=== PATIENT | female | born 1955 | race Caucasian/White ===

== ENCOUNTER 2019-02-05 12:14 | Day surgery (SDC) | payer BC ==
[2019-02-02 16:06] VITALS: Ht 165.1 cm; Wt 70.9 kg
[2019-02-05] VITALS (13 sets, daily range): BP systolic 121–166; BP diastolic 59–92; PULSE 55–86; RESP 14–25
[~2019-02-05] VITALS: Ht 165.1 cm; Wt 70.9 kg
[~2019-02-05 12:14] MED LIST: CEFAZOLIN 2 GM/50 ML (PMX) 50 ML IVPB SCH
[2019-02-05] MEDS ORDERED: LACTATED RINGER'S 1,000 ML IV SCH (13:30)
[2019-02-05] MEDS ORDERED: CLINDAMYCIN 600 MG/D5W (PMX) 50 ML IVPB SCH (14:00)
[2019-02-05] MEDS ORDERED: NEOMYC/POLYMYX/BACIT 30 GM OINT ONE (14:13)
[2019-02-05] MEDS ORDERED: LIDOCAINE 1% (MPF) 30 ML INJ ONE (14:13)
--- NOTE | 2019-02-05 14:34 | PREAC ---
Date/Time of Note Date/Time of Note DATE: 02/05/19 TIME: 14:34 Anesthesia Eval and Record Evaluation Time Pre-Procedure Interview DATE: 02/05/19 TIME: 14:34 Age 63 Sex female NPO: 8 hrs Preoperative diagnosis wrist mass Planned procedure excision Past Medical History Past Medical History: None Surgery & Anesthesia Issues No known issue Meds Anticoagulation: No Beta Rose within 24 hr: No Reason Beta Rose not given: Pt. not on B-Rose No Active Prescriptions or Reported Meds Current Medications Cefazolin Sodium/ Dextrose 50 ml @ 100 mls/hr PRE-OP IVPB ; Start 02/05/19 at 07:00; Stop 02/05/19 at 19:00 Lactated Ringer's 1,000 ml @ 25 mls/hr Q24H IV ; Start 02/05/19 at 13:30 Clindamycin HCl/ Dextrose 50 ml @ 50 mls/hr ONCE IVPB ; Start 02/05/19 at 14:00; Stop 02/05/19 at 14:59 Meds reviewed: Yes Allergies Coded Allergies: Penicillins (Verified Allergy, Intermediate, 02/05/19) Allergies Reviewed: Yes Labs/Studies Labs Reviewed: Reviewed by anesthesiologist test: N/A Pre-procedure Exam Last vitals Vital Signs Date Temp Pulse Resp B/P (MAP) Pulse Ox O2 O2 Flow FiO2 Time Delivery Rate 02/05/19 97.3 56 16 121/59 100 Room Air 12:59 (79) Airway: Adequate mouth opening, Adequate thyromental dist Mallampati: Mallampati II Teeth: Normal Lung: Normal Heart: Normal ASA Physical Status ASA physical status: 1 Emergency: None Pre-operative Attestations Prior to commencing anesthesia and surgery, the patient was re-evaluated, there was verification of: *The patient's identity *The results of appropriate recent lab work and preoperative vital signs *The above evaluation not changing prior to induction *Anesthetic plan, risk benefits, alternative and complications discussed with patient/family; questions answered; patient/family understands, accepts and wishes to proceed. LACHO LAURA DO Feb 05, 2019 14:34
[2019-02-05] MEDS ORDERED: MIDAZOLAM 1 MG/ML 2 ML INJ ONE ×2 (14:36→15:58)
[2019-02-05] MEDS ORDERED: PROPOFOL 20 ML ONE (14:36)
[2019-02-05] MEDS ORDERED: ETOMIDATE 20 MG INJ ONE (14:36)
[2019-02-05] MEDS ORDERED: FENTAnyl 50 MCG/ML VIAL ONE (14:36)
[2019-02-05] MEDS ORDERED: CLINDAMYCIN 600 MG/D5W (PMX) 50 ML IVPB ONE (14:47)
[2019-02-05] MEDS ORDERED: CEFAZOLIN 1 GM INJ ONE (14:47)
[2019-02-05] MEDS ORDERED: ONDANSETRON 4 MG INJ ONE ×2 (14:49→15:44)
--- NOTE | 2019-02-05 15:29 | OPR ---
Date/Time of Note Date/Time of Note DATE: 02/05/19 TIME: 15:20 Operative Report Preoperative Diagnosis Right dorsal wrist mass Postoperative Diagnosis Right dorsal wrist mass Operation/Procedure Performed 1. Right wrist mass excision, deep, 2. Right wrist capsulectomy Surgeon see signature line Slate Mixer None Anesthesia Type: general Anesthesiologist: LACHO LAURA DO Tourniquet Time: 15 minutes Estimated Blood Loss: minimal Transfusion none Specimen Wrist mass Grafts/Implants none Tubes/Drains None Complications none Pt Condition Post Procedure: stable Disposition: PACU Indications Patient is a 63 year old with a right dorsal wrist mass for more than 6 months. It has gotten larger over time. She would like it excised. She also has mild carpal tunnel syndrome which is being monitored. She understands risks of surgery which include but are not limited to infection, pain, neurovascular injury, stiffness, swelling, recurrence, decreased range of motion, and other anesthsia-related risks. She elects to proceed. Procedure Description Patient was identified in preoperative holding area. Upper extremity was marked. She is brought back to operating room. She is placed supine and general endotracheal anesthesia was induced. A nonsterile tourniquet was applied the arm. IV clindamycin 600 mg was administered. The arm was prepped and draped in usual sterile fashion. Timeout was full performed indicating correct patient site and procedure A transverse incision was marked out over the dorsal wrist crease approximately 3 cm long. The mass was multilobulated. Arm was exsanguinated Esmarch and tourniquet was elevated to 250 minutes mercury. Skin was incised sharply. Skin flaps were elevated and retracted. I immediately encountered what appeared to be a townsend and brown solid mass emanating underneath the extensor tendons. Second and fourth dorsal extensor tendon compartments were retracted. The dorsal intercalated ligament was released. The mass was circumferentially dissected. I did request a frozen section at this point. A small piece of the mass dorsally was excised and sent to pathology for frozen section. 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 The mass was multilobulated. It was traced back to the radiocarpal joint. A capsulectomy was performed removing about a 1 x 1 cm section of the dorsal capsule. I excised the stalk of the mass and all abnormal appearing tissue was removed in one piece. The scapholunate ligament was preserved. Once a capsulectomy was performed I do not see any residual abnormal tissue within the joint. The tourniquet was released. The wound was irrigated with bacitracin was seen. Hemostasis was achieved with bipolar cautery. Subcutaneous tissue was closed with 4-0 Monocryl and the skin was closed with running subcuticular 4-0 Monocryl suture. Steri-Strips were applied. She is placed into a well-padded volar fiberglass splint. There is brisk capillary refill in all fingers and sponge and instrument counts were correct at end of the case. Plan : We will follow-up on final pathology. TRACEY TILLEY MD Feb 05, 2019 15:29
--- NOTE | 2019-02-05 15:37 | PAC ---
Date/Time of Note Date/Time of Note DATE: 02/05/19 TIME: 15:36 Post-Anesthesia Notes Post-Anesthesia Note Last documented vital signs Vital Signs Date Temp Pulse Resp B/P (MAP) Pulse Ox O2 O2 Flow FiO2 Time Delivery Rate 02/05/19 98 56 16 120/66 100 Room Air 1556 Activity: WNL Respiratory function: WNL Cardiovascular function: WNL Mental status: Baseline Pain reasonably controlled: Yes Hydration appropriate: Yes Nausea/Vomiting absent: Yes LACHO LAURA DO Feb 05, 2019 15:37
[2019-02-05] MEDS ORDERED: ONDANSETRON 4 MG INJ IV STA (15:49)
[2019-02-05] MEDS ORDERED: MIDAZOLAM 1 MG/ML 2 ML INJ IV ONE (16:00)
== END 2019-02-05 17:37 | disposition home or self-care (01) ==
LOC: SDS 12:14
PROVIDERS: ATTEND Orthopaedic Surgery
DX: M65.821 Other synovitis and tenosynovitis, right upper arm (principal); D48.1 Neoplasm of uncertain behavior of connective and other soft tissue
CPT/HCPCS: 25076; 87070; 87075; 87102; 88307; 88331; J2250; J2405; J3010; Z7512; Z7610; J0690